=== PATIENT | female | born 1990 | race Hispanic/Latino ===

== ENCOUNTER 2025-06-10 21:56 | Emergency (ER) | payer MEDICARE, MEDICAID ==
[~2025-06-10] VITALS: Ht 167.6 cm; Wt 119.3 kg
--- NOTE | 2025-06-10 22:05 | NUR ---
DR BREWSTER INFORMED OF VITAL SIGNS, NO ORDERS GIVEN
[2025-06-10 22:39] LABS: IMMATURE GRANULOCYTE ABSOLUTE 0.05 K/uL (0-1); NUCLEATED RED BLOOD CELLS 0.0 % (0.0-0.19); PLATELET COUNT (AUTO) 492 K/uL (130-400); RED BLOOD CELL COUNT(AUTO) 4.92 MIL/uL (4.00-5.50); RED CELL DISTRIBUTION WIDTH 13.5 % (11.0-15.5); WHITE BLOOD COUNT (AUTO) 13.5 K/uL (4.8-10.8)
[2025-06-10 22:50] LABS: CREATININE 0.8 mg/dL (0.5-1.0); GLOMERULAR FILTR. RATE CALC 98 mL/min (>90); GLUCOSE,RANDOM 163 mg/dL (70-105); SODIUM SERUM 141 mmol/L (136-145); UREA NITROGEN, BLOOD 8 mg/dL (7-18)
[2025-06-10] MEDS: 0.9%NACL 1000ML 1,000 ML IV ONE (22:51)
--- NOTE | 2025-06-10 22:56 | EKG ---
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
[2025-06-10 23:00] LABS: ALCOHOL, BLOOD < 3 mg/dL (0-10); CREATINE KINASE, TOTAL 70 U/L (21-232); HCG,QUANTITATIVE 0 mIU/mL (0-5)
--- NOTE | 2025-06-10 23:00 | ERN ---
ED Note History of Present Illness Stated Complaint: "FEELS LIKE PASSING OUT" Chief Complaint: Other Problems Time Seen by MD: 22:02 Dictation: This is a 34-year-old morbidly obese female who has presented to the emergency room with her mother with complaints of feeling very shaky and jittery and a sensation of passing out. She stated that she took 7 of " alert pills" from [employer] as who is she was working on the computer just in case. She did not think that 1 or do would do anything in ended up taking 7 of them. She started experiencing severe shaking anxiety and jitteriness and was unable to border rest and relax. She had slight headache, but denied any diarrhea GI symptoms. She also reported palpitations Temperature 98 pulse 128 respirations 20 blood pressure 135/66 with a pulse oximetry of 100% on room air Allergies: Coded Allergies: No Known Allergies (Unverified Allergy, Unknown, 06/10/25) Past Medical History Past Medical History: No Pertinent History Surgical History: None Family History: Negative Social History: Negative RN Note Reviewed/Agreed w/PFSH: Yes Review of System Dictation Constitutional: Negative for fever,chills, and weight loss positive for restlessness and jitteriness and shaking Eyes: Negative for injury, pain,redness, and discharge ENT: Negative for injury,pain or swelling Cardiovascular: Negative for chest pain, and edema positive for palpitations, Respiratory: Negative for shortness of breath, cough, and wheezing, Abdomen/GI: Negative for abdominal pain, nausea, vomiting, diarrhea, and constipation Back: Negative for injury and pain : Negative for injury, bleeding and discharge MS/Extremity: Negative for injury and deformity Skin: Negative for rash, and discoloration Neuro: Negative for headache, weakness, numbness, tingling, and seizure Psych: Negative for suicide ideation, homicidal ideation, and hallucinations positive for severe anxiety Initial Vital Sign VS Vital Signs Date Time Temp Pulse Resp B/P (MAP) Pulse Ox O2 Delivery O2 Flow Rate FiO2 06/10/25 21:57 98.1 128 20 135/66 100 Room Air 0 06/10/25 22:13 21 Physical Exam Dictation General: awake, alert, NAD extremely obese lady who appears very anxious and restless shaking and trying to get comfortable in bed Head/Face: Normocephalic, atraumatic Eyes: PERRL, EOMI, vision at baseline ENT: oral cavity clear, TMs clear, no signs of infection Neck: Trachea midline, supple, no nuchal rigidity Cardiovascular: Sinus tachycardia, normal S1/S2, No MRGs, no JVD Respiratory: CTAB, no respiratory distress, No rales or wheezes Abdomen: Soft, non-tender, non-distended, normal bowel sounds, no guarding or rebound. Skin: Warm, dry, normal turgor, no rash MS/Extremity: Pulses equal, no cyanosis, neurovascular intact, FROM Neuro: COAx4, GCS 15, strength 5/5, CN 2-12 intact, normal cerebellar exam, normal gait, Psych: Normal behavior, mood, and affect normal Extremities-trace edema without any palpable cords, Homans sign is negative Results (Laboratory/Radiology) Laboratory/Radiology Laboratory Tests Test 06/10/25 22:32 06/10/25 23:25 White Blood Count 13.5 K/uL (4.8-10.8) H Red Blood Count 4.92 MIL/uL (4.00-5.50) Hemoglobin 13.3 g/dL (12.0-16.0) Hematocrit 39.1 % (36-48) Mean Corpuscular Volume 79.5 fL (79-99) Mean Corpuscular Hemoglobin 27.0 pg (27.0-33.0) Mean Corpuscular Hemoglobin Concent 34.0 g/dL (32.0-36.0) Red Cell Distribution Width 13.5 % (11.0-15.5) Platelet Count 492 K/uL (130-400) H Mean Platelet Volume 8.8 fL (7.5-10.5) Immature Granulocyte % (Auto) 0.4 % (0-1) Neutrophils (%) (Auto) 88.9 % (40.0-77.0) H Lymphocytes (%) (Auto) 7.9 % (21.0-51.0) L Monocytes (%) (Auto) 2.4 % (3.0-13.0) L Eosinophils (%) (Auto) 0.0 % (0.0-8.0) Basophils (%) (Auto) 0.4 % (0.0-5.0) Neutrophils # (Auto) 12.0 K/uL (1.8-7.7) H Lymphocytes # (Auto) 1.1 K/uL (1.0-4.8) Monocytes # (Auto) 0.3 K/uL (0.1-1.0) Eosinophils # (Auto) 0.00 K/uL (0.00-0.70) Basophils # (Auto) 0.05 K/uL (0.00-0.20) Absolute Immature Granulocyte (auto 0.05 K/uL (0-1) Nucleated Red Blood Cells 0.0 % (0.0-0.19) White Cell Morphology Comment See comments Sodium Level 141 mmol/L (136-145) Potassium Level 3.2 mmol/L (3.5-5.1) L Chloride Level 103 mmol/L (101-111) Carbon Dioxide Level 20 mmol/L (21-32) L Blood Urea Nitrogen 8 mg/dL (7-18) Creatinine 0.8 mg/dL (0.5-1.0) Glomerular Filtration Rate Calc 98 mL/min (>90) Random Glucose 163 mg/dL (70-105) H Total Calcium 8.7 mg/dL (8.5-10.1) Total Creatine Kinase 70 U/L (21-232) Troponin I High Sensitivity 4.2 ng/L (4-50) Human Chorionic Gonadotropin, Quant 0 mIU/mL (0-5) Serum Alcohol < 3 mg/dL (0-10) Urine Color LIGHT-YELLOW (YELLOW) Urine Appearance CLOUDY (CLEAR) H Urine pH 6.5 (5.0-8.0) Urine Specific [place] 1.018 (1.001-1.031) Urine Protein NEGATIVE mg/dL (NEGATIVE) Urine Glucose (UA) NEGATIVE mg/dL (NEGATIVE) Urine Ketones 10 mg/dL (NEGATIVE) H Urine Occult Blood SMALL (NEGATIVE) H Urine Nitrate NEGATIVE (NEGATIVE) Urine Bilirubin NEGATIVE mg/dL (NEGATIVE) Urine Urobilinogen 0.2 mg/dL (0.2-1.0) Urine Leukocyte Esterase NEGATIVE Foreign/uL Urine RBC 11-25 /HPF (0-1) H Urine WBC 2-5 /HPF (0-1) H Urine Squamous Epithelial Cells MOD /HPF (0-2) Urine Bacteria None /HPF (None Seen) Urine Opiates Screen NEGATIVE (NEGATIVE) Urine Barbiturates Screen NEGATIVE (NEGATIVE) Urine Phencyclidine Screen NEGATIVE (NEGATIVE) Urine Amphetamines Screen NEGATIVE (NEGATIVE) Urine Benzodiazepines Screen NEGATIVE (NEGATIVE) Urine Cocaine Screen NEGATIVE (NEGATIVE) Urine Marijuana (THC) Screen NEGATIVE (NEGATIVE) Labs Reviewed?: Yes EKG Comment: 12 lead EKG done on 06/10/2025 at 10:51 p.m. shows a heart rate of 108, SD interval 136, QRS 86, QT/QTC 379/510 Impression sinus tachycardia with a overall somewhat of a low voltage which could be related to her body habitus nonspecific ST-T changes noted. Slightly prolonged QT. EKG rhythm strip shows a normal sinus rhythm with nonspecific ST-T changes and slightly prolonged QT noted. Interpreted by ER MD Dr. Brewster ED Course ED Course Orders Procedure Category Date Status Time Alcohol, Blood LAB 06/10/25 Complete 22: Cardiac Panel LAB 06/10/25 Complete 22: Cbc With Differential LAB 06/10/25 Complete 22: Basic Metabolic Panel LAB 06/10/25 Complete 22: Hcg,Quantitative LAB 06/10/25 Complete 22: Urinalysis Profile LAB 06/10/25 Complete 22:03 Drug Screen Urine LAB 06/10/25 Complete 22:03 12 Lead Ekg Tracing- EKG 06/10/25 Complete Technical 22:03 0.9%Nacl 1000ml (Ns PHA 06/10/25 Complete 1000ml) 22:30 Alprazolam 0.5mg PHA 06/10/25 Complete (Xanax 0.5mg) 22:30 Potassium Bicarb/Cit PHA 06/10/25 Complete Ac 25meq (K-Lyte Ta 23:00 Diazepam 5 Mg/Ml 2 Ml PHA 06/11/25 In Process Syg (Valium 5 Mg/M 00:00 Ondansetron 4mg Inj PHA 06/11/25 Complete (Zofran 4mg Inj) 01:00 Current Medications Medications (Trade) Dose Ordered Sig/Deyanira Route PRN Reason Start Time Stop Time Status Last Admin Dose Admin Alprazolam (XANax 0.5MG) 0.5 mg ONCE ONCE PO 06/10/25 22:30 06/10/25 22:31 DC 06/10/25 22:51 Diazepam (VALium 5 MG/ML 2 ML SYG) 5 mg Q4H PRN IV ANXIETY 06/11/25 00:00 06/18/25 00:00 06/11/25 00:00 Ondansetron HCl (zoFRAN 4MG INJ) 4 mg ONCE ONCE IVP 06/11/25 01:00 06/11/25 01:01 DC 06/11/25 01:59 Potassium Bicarbonate (K-Lyte Tablet Eff 25 Meq Tablet.eff) 50 meq ONCE ONCE PO 06/10/25 23:00 06/10/25 23:04 DC 06/10/25 23:34 Sodium Chloride 1,000 ml @ 0 mls/hr ONCE ONCE IV 06/10/25 22:30 06/10/25 22:31 DC 06/10/25 22:51 Vital Signs Date Time Temp Pulse Resp B/P (MAP) Pulse Ox O2 Delivery O2 Flow Rate FiO2 06/10/25 23:23 98.2 102 20 132/74 99 Room Air* 0 21 06/10/25 22:13 98.8 124 18 143/83 98 Room Air* 0 21 06/10/25 21:57 98.1 128 20 135/66 100 Room Air 0 We will perform diagnostic labs, advanced imaging and administer medications according to the patient's complaint. Once the results are available, will review and personally interpreted the labs to rule out any acute life- threatening emergency the trach require immediate intervention and treatment. I will then re-evaluate the patient after treatment and diagnostic exams have return to determine whether the patient requires any further testing, can safely be discharged home or need further admission to hospital for additional treatment and evaluation. Medical Decision Making MDM Differential diagnosis: Caffeine toxicity, neuro stimulant toxicity, panic at tack This is a 34-year-old morbidly obese female who has presented to the emergency room with her mother with complaints of feeling very shaky and jittery and a sensation of passing out. She stated that she took 7 of " alert pills" from [employer] as who is she was working on the computer just in case. She did not think that 1 or do would do anything in ended up taking 7 of them. She started experiencing severe shaking anxiety and jitteriness and was unable to border rest and relax. She had slight headache, but denied any diarrhea GI symptoms. She also reported palpitations Temperature 98 pulse 128 respirations 20 blood pressure 135/66 with a pulse oximetry of 100% on room air 10:53 p.m. labs reviewed CBC showed a white count of 13.5. BNP 7 showed a potassium of 3.2. test is negative troponins are unremarkable 12:00 a.m. urinalysis showed mild occult hematuria but no evidence of any UTI. Urine drug screen is negative. Aggressive IV hydration, potassium repletion done. Benzodiazepines were also given for an anxiolytic effect She was observed in the emergency room 3:00 a.m. patient's heart rate tachycardia improved restlessness improved nausea and all the symptoms have resolved and she requested to be discharged to home I counseled her extensively on weight loss diet and exercise and also to be tested for a sleep disorder rather than try [id number] pills. Rationale: Tests considered and ordered secondary to shared decision making include: Previous outside records reviewed: Old ER visits. Risk of complication and/or morbidity or mortality of patient management: None Medications-Per medication reconciliation Need for hospitalization: Patient does not meet criteria for hospitalization. Need for emergency major/minor surgery: No There are no social concerns with this patient. Prescription drug management Prescriptions will include symptomatic care Patient's prior external medical records from other ER visits were reviewed by me as indicated. Prior testing and results from previous visits were reviewed. Prior tests were taken into account with medical decision making and resource utilization, independent historian/historians were used to obtain complete medical history. I independently interpreted the test that were performed, results were reviewed by me and considered findings on radiology if ordered. Medical management and examination interpretation discussions were had by me with other qualified healthcare professionals as indicated for the patient's care. Problem List Problem List: (1) Caffeine toxicity DX & DISP Disposition: Discharge Departure Impression: Primary Impression: Caffeine toxicity Condition: Stable Additional Instructions: Patient and the caregiver have been informed of all the diagnostic tests and the imaging conducted during the today's visit to the emergency room and has verbalized understanding of the results I have personally reviewed and interpreted all diagnostic exams performed here in the ER today as well as the vital signs documented by the nursing staff. The patient is now being discharged to home and should follow up with the primary care physician or the specialist as directed by the ER staff. Follow-up with primary care provider in 1 to 2 days. Take medications as directed here in the emergency room. Okay to continue home medications unless otherwise discussed during your visit in the emergency room today. Return to your nearest emergency room if symptoms worsen or if there is no improvement. Call 911 if you need immediate assistance. Take Tylenol or Motrin over-the-c ounter as needed and if no contraindications are present. Increase oral hydration. A wound culture or urine culture was ordered here in the emergency room department please follow-up with primary care provider and advise them to get repeat ports from our facility. If you had any Hossein wrap/splints that were applied here, please do not remove them until you see your primary care or specialty. Referrals: AKILAH PEREZ (PCP) MAC BREWSTER MD Jun 10, 2025 23:00
[2025-06-10 23:45] LABS: APPEARANCE,URINE CLOUDY (CLEAR); GLUCOSE, URINE (UA) NEGATIVE (NEGATIVE); LEUKOCYTE ESTERASE ,URINE NEGATIVE Leu/uL (NEGATIVE); NITRATE,URINE NEGATIVE (NEGATIVE); OCCULT BLOOD,URINE SMALL (NEGATIVE)
[2025-06-10 23:46] LABS: ADD UA MICROSCOPIC YES
[2025-06-10 23:47] LABS: SQUAMOUS EPITHELIAL CELL,UR MOD /HPF (0-2)
[2025-06-10 23:52] LABS: AMPHET/METH SCREEN,URINE NEGATIVE (NEGATIVE); BARBITURATE SCREEN, URINE NEGATIVE (NEGATIVE); CANNABINOID SCREEN,URINE NEGATIVE (NEGATIVE); COCAINE SCREEN,URINE NEGATIVE (NEGATIVE)
[2025-06-11 03:18] VITALS: BP 228/78; PULSE 108; RESP 19; TEMP 98; O2SAT 100
== END 2025-06-11 03:19 | disposition home or self-care (01) ==
LOC: EDH 21:56
DX: T43.611A Poisoning by caffeine, accidental (unintentional), initial encounter (principal); Y92.89 Other specified places as the place of occurrence of the external cause
CPT/HCPCS: 99284; 96361; 82550; 84484; 80048; 80305; 84702; 85025; 36415; 93005; 81001; 96374; 96375; J7030; J3360; J2405